=== PATIENT | male | born 1980 | race Caucasian/White ===

== ENCOUNTER 2017-09-15 04:15 | Observation (INO) ==
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
[2017-09-15 05:03] LABS: Bilirubin,Urine Negative (Negative); Blood,Urine Trace (Negative); Clarity,Urine Clear (Clear); Color,Urine Yellow (Yellow); Glucose,Urine (UA) Normal (Normal); Ketones,Urine Negative (Negative); Leukocyte Esterase,Urine Negative (Negative); Nitrite,Urine Negative (Negative); Protein,Urine Trace mg/dL (Neg-Trace); Specific Gravity,Urine 1.021 (1.010-1.025); Urobilinogen,Urine Normal (Normal)
[2017-09-15 05:03] LABS: Basophils % 0.2 %; Eosinophils # 0.1 K/mcL (0.0-0.6); Eosinophils % 0.4 %; Hematocrit 48.4 % (37.5-50.1); Hemoglobin 17.4 g/dL (12.9-16.9); Immature Granulocytes % 0.6 % (0-4); Lymphocytes # 2.8 K/mcL (0.6-4.6); Mean Corpuscular Hemoglobin 30.9 pg (28.0-33.3); Mean Platelet Volume 9.2 fL (9.4-12.4); Monocytes # 0.7 K/mcL (0.0-1.3); Monocytes % 4.9 %; Neutrophils # 9.6 K/mcL (1.6-8.9); Platelet Count 346 K/mcL (140-400); Red Blood Count 5.63 M/mcL (4.19-5.50); Red Cell Distribution Width 12.7 % (11.5-14.5); Segmented Neutrophils % 72.9 %
[2017-09-15 05:05] LABS: Bacteria,Urine None Seen per hpf (None-Few); Hyaline Casts,Urine None Seen per lpf (None-Few); Squamous Epithelial Cell,Urine Moderate per lpf (None-Few)
--- NOTE | 2017-09-15 05:07 | Emergency Department Note ---
Disposition Clinical Impression: Suicidal ideation, Substance abuse, Alcohol abuse Closed head injury Qualifiers: Encounter type: initial encounter Qualified Code(s): S09.90XA - Unspecified injury of head, initial encounter Disposition: Admitted As Inpatient Condition: Fair General Adult HPI - General Chief complaint: ED Psychiatric Symptoms Stated complaint: SI Time Seen by Provider: 09/15/17 04:22 Source: patient, EMS Mode of arrival: EMS Limitations: no limitations - History of Present Illness Pain Scale: 0 - Related Data Home Medications Medication Instructions Recorded Confirmed No Known Home Drugs 09/15/17 09/15/17 Allergies Allergy/AdvReac Type Severity Reaction Status Date / Time ketorolac [From Toradol] Allergy Hives Verified 07/04/16 09:07 Naloxone [From Narcan] AdvReac Palpitation Verified 07/04/16 09:07 s Constitutional: Denies: fever Cardiovascular: Reports: chest pain Respiratory: Denies: cough, dyspnea Gastrointestinal: Denies: abdominal pain, nausea, vomiting Past Medical History - Past Medical History Medical history: Reports: no medical history Psychiatric history: Reports: no psych history - Social History Smoking Status: Current every day smoker Smokeless Tobacco Status: No Alcohol use: Reports: none Drug use: Reports: IV Drug Use, prescription drug abuse, other Physical Exam - General Limitations: no limitations General appearance: alert, in no apparent distress, other (Appears tearful and crying) Course Vital Signs Temperature 98.1 F 09/15/17 04:19 Pulse Rate 99 09/15/17 04:19 Respiratory Rate 18 09/15/17 04:19 Blood Pressure 137/109 09/15/17 04:19 O2 Sat by Pulse Oximetry 97 09/15/17 04:19 Temperature 99.1 F 09/15/17 15:53 Pulse Rate 94 09/15/17 15:53 Respiratory Rate 18 09/15/17 15:53 Blood Pressure 141/79 09/15/17 15:53 O2 Sat by Pulse Oximetry 99 09/15/17 15:53 Oxygen Delivery Oxygen Delivery Room Air Medical Decision Making - Lab Data Result diagrams: 09/15/17 04:22 09/15/17 04:22 Lab Results 09/15/17 09/15/17 09/15/17 Range/Units 03:47 03:47 04:22 WBC 13.2 H (4.3-11.1) K/mcL RBC 5.63 H (4.19-5.50) M/mcL Hgb 17.4 H (12.9-16.9) g/dL Hct 48.4 (37.5-50.1) % MCV 86.0 (83.0-100.0) fL MCH 30.9 (28.0-33.3) pg MCHC 36.0 H (31.6-35.5) g/dL RDW 12.7 (11.5-14.5) % Plt Count 346 (140-400) K/mcL MPV 9.2 L (9.4-12.4) fL Immature Gran % 0.6 (0-4) % Seg Neutrophils % 72.9 % Lymphocytes % 21.0 % Monocytes % 4.9 % Eosinophils % 0.4 % Basophils % 0.2 % Neutrophils # 9.6 H (1.6-8.9) K/mcL Lymphocytes # 2.8 (0.6-4.6) K/mcL Monocytes # 0.7 (0.0-1.3) K/mcL Eosinophils # 0.1 (0.0-0.6) K/mcL Basophils # 0.0 (0.0-0.2) K/mcL Sodium (136-145) mEq/L Potassium (3.5-5.1) mEq/L Chloride (98-107) mEq/L Carbon Dioxide (23-29) mEq/L BUN (6-20) mg/dL Creatinine (0.70-1.30) mg/dL Est GFR ( Amer) (> 60) Est GFR (Non-Af Amer) (> 60) BUN/Creatinine Ratio (6-26) Glucose (70-105) mg/dL Calculated Osmolality (280-300) Calcium (8.6-10.3) mg/dL Urine Color Yellow (Yellow) Urine Clarity Clear (Clear) Urine pH 7.0 (5.0-8.0) pH Units Ur Specific [place] 1.021 (1.010-1.025) Urine Protein Trace (Neg-Trace) mg/dL Urine Glucose (UA) Normal (Normal) mg/dL Urine Ketones Negative (Negative) mg/dL Urine Blood Trace H (Negative) Urine Nitrite Negative (Negative) Urine Bilirubin Negative (Negative) Urine Urobilinogen Normal (Normal) mg/dL Ur Leukocyte Esterase Negative (Negative) Urine Microscopic RBC 5-15 H (0-3) per hpf Urine Microscopic WBC 3-5 H (0-3) per hpf Ur Squamous Epith Cells Moderate H (None-Few) per lpf Urine Bacteria None Seen (None-Few) per hpf Hyaline Casts None Seen (None-Few) per lpf Salicylates (15.0-30.0) mg/dL Urine Opiates Screen Positive H (Zfmxns=642) ng/mL Acetaminophen (10-20) mcg/mL Ur Barbiturates Screen Negative (Iikifu=863) ng/mL Ur Phencyclidine Scrn Negative (Cutoff=25) ng/mL Ur Amphetamines Screen Positive H (Thmpfa=5901) ng/mL U Benzodiazepines Scrn Negative (Mmecpi=592) ng/mL Urine Cocaine Screen Negative (Cutoff= 300) ng/mL U Marijuana (THC) Screen Negative (Cutoff = 50) ng/mL Ethyl Alcohol (Less than 10) mg/dL 09/15/17 09/15/17 09/15/17 Range/Units 04:22 07:17 08:01 WBC (4.3-11.1) K/mcL RBC (4.19-5.50) M/mcL Hgb (12.9-16.9) g/dL Hct (37.5-50.1) % MCV (83.0-100.0) fL MCH (28.0-33.3) pg MCHC (31.6-35.5) g/dL RDW (11.5-14.5) % Plt Count (140-400) K/mcL MPV (9.4-12.4) fL Immature Gran % (0-4) % Seg Neutrophils % % Lymphocytes % % Monocytes % % Eosinophils % % Basophils % % Neutrophils # (1.6-8.9) K/mcL Lymphocytes # (0.6-4.6) K/mcL Monocytes # (0.0-1.3) K/mcL Eosinophils # (0.0-0.6) K/mcL Basophils # (0.0-0.2) K/mcL Sodium 140 (136-145) mEq/L Potassium 3.7 (3.5-5.1) mEq/L Chloride 108 H (98-107) mEq/L Carbon Dioxide 23 (23-29) mEq/L BUN 9 (6-20) mg/dL Creatinine 0.89 (0.70-1.30) mg/dL Est GFR ( Amer) > 60 (> 60) Est GFR (Non-Af Amer) > 60 (> 60) BUN/Creatinine Ratio 10 (6-26) Glucose 114 H (70-105) mg/dL Calculated Osmolality 290 (280-300) Calcium 9.8 (8.6-10.3) mg/dL Urine Color (Yellow) Urine Clarity (Clear) Urine pH (5.0-8.0) pH Units Ur Specific [place] (1.010-1.025) Urine Protein (Neg-Trace) mg/dL Urine Glucose (UA) (Normal) mg/dL Urine Ketones (Negative) mg/dL Urine Blood (Negative) Urine Nitrite (Negative) Urine Bilirubin (Negative) Urine Urobilinogen (Normal) mg/dL Ur Leukocyte Esterase (Negative) Urine Microscopic RBC (0-3) per hpf Urine Microscopic WBC (0-3) per hpf Ur Squamous Epith Cells (None-Few) per lpf Urine Bacteria (None-Few) per hpf Hyaline Casts (None-Few) per lpf Salicylates < 2.5 L (15.0-30.0) mg/dL Urine Opiates Screen (Zvqeje=949) ng/mL Acetaminophen < 10 L (10-20) mcg/mL Ur Barbiturates Screen (Zlvyni=399) ng/mL Ur Phencyclidine Scrn (Cutoff=25) ng/mL Ur Amphetamines Screen (Buyxsd=7235) ng/mL U Benzodiazepines Scrn (Dmnspc=885) ng/mL Urine Cocaine Screen (Cutoff= 300) ng/mL U Marijuana (THC) Screen (Cutoff = 50) ng/mL Ethyl Alcohol 132 H 87 H 71 H (Less than 10) mg/dL Attestation Statement - Attestation Attestation: I examined this patient and my medical decision-making was reviewed with the Resident Physician. I agree with the documented findings, disposition and treatment plan as described except to the extent set forth below. Patient presents to the ED with suicidal ideation. Alcohol intoxication. Fall with facial injury. Patient reports increased stress of his girlfriend committed suicide. Patient is crying and tearful on examination. Plan. Medical clearance and psychiatric evaluation. CT head face. Signed out at shift change Dr. Gomez at [phone].
[2017-09-15 05:22] LABS: Acetaminophen < 10 mcg/mL (10-20); BUN/Creatinine Ratio 10 (6-26); Blood Urea Nitrogen 9 mg/dL (6-20); Calcium 9.8 mg/dL (8.6-10.3); Carbon Dioxide 23 mEq/L (23-29); Chloride 108 mEq/L (98-107); Ethanol 132 mg/dL (Less than 10); Glucose 114 mg/dL (70-105); Osmolality,Calculated 290 (280-300); Potassium 3.7 mEq/L (3.5-5.1); Salicylate < 2.5 mg/dL (15.0-30.0); Sodium 140 mEq/L (136-145); eGFR For African Americans > 60 (> 60); eGFR For Non-African Americans > 60 (> 60)
[2017-09-15 05:24] LABS: Amphetamine Screen,Urine Positive ng/mL (Cutoff=1000); Barbiturate Screen,Urine Negative ng/mL (Cutoff=200); Benzodiazepines Screen,Urine Negative ng/mL (Cutoff=200); Cannabinoid Screen,Urine Negative ng/mL (Cutoff = 50); Cocaine Screen,Urine Negative ng/mL (Cutoff= 300); Opiate Screen,Urine Positive ng/mL (Cutoff=300); Phencyclidine Screen,Urine Negative ng/mL (Cutoff=25)
--- NOTE | 2017-09-15 08:02 | Emergency Department Note ---
Disposition Clinical Impression: Suicidal ideation, Substance abuse, Alcohol abuse Closed head injury Qualifiers: Encounter type: initial encounter Qualified Code(s): S09.90XA - Unspecified injury of head, initial encounter Disposition: Admitted As Inpatient Condition: Fair Referrals: NONE,PCP [Primary Care Provider] - Time of Disposition: 09: General Adult HPI - General Chief complaint: ED Psychiatric Symptoms Stated complaint: SI Time Seen by Provider: 09/15/17 04:22 Source: patient, EMS Mode of arrival: EMS Limitations: no limitations - History of Present Illness Pain Scale: 0 - Related Data Home Medications Medication Instructions Recorded Confirmed No Known Home Drugs 09/15/17 09/15/17 Allergies Allergy/AdvReac Type Severity Reaction Status Date / Time ketorolac [From Toradol] Allergy Hives Verified 07/04/16 09:07 Naloxone [From Narcan] AdvReac Palpitation Verified 07/04/16 09:07 s Constitutional: Denies: fever Cardiovascular: Reports: chest pain Respiratory: Denies: cough, dyspnea Gastrointestinal: Denies: abdominal pain, nausea, vomiting Past Medical History - Past Medical History Medical history: Reports: no medical history Psychiatric history: Reports: no psych history - Social History Smoking Status: Current every day smoker Smokeless Tobacco Status: No Alcohol use: Reports: none Drug use: Reports: IV Drug Use, prescription drug abuse, other Physical Exam - General Limitations: no limitations General appearance: alert, in no apparent distress, other (Appears tearful and crying) Course Vital Signs Temperature 98.1 F 09/15/17 04:19 Pulse Rate 99 09/15/17 04:19 Respiratory Rate 18 09/15/17 04:19 Blood Pressure 137/109 09/15/17 04:19 O2 Sat by Pulse Oximetry 97 09/15/17 04:19 Temperature 98.1 F 09/15/17 04:19 Pulse Rate 76 09/15/17 05:09 Respiratory Rate 18 09/15/17 05:09 Blood Pressure 132/88 09/15/17 05:09 O2 Sat by Pulse Oximetry 98 09/15/17 05:09 Oxygen Delivery Oxygen Delivery Room Air Medical Decision Making - Lab Data Lab results reviewed: Yes I reviewed the patient's lab results. Result diagrams: 09/15/17 04:22 09/15/17 04:22 Lab Results 09/15/17 09/15/17 09/15/17 Range/Units 03:47 03:47 04:22 WBC 13.2 H (4.3-11.1) K/mcL RBC 5.63 H (4.19-5.50) M/mcL Hgb 17.4 H (12.9-16.9) g/dL Hct 48.4 (37.5-50.1) % MCV 86.0 (83.0-100.0) fL MCH 30.9 (28.0-33.3) pg MCHC 36.0 H (31.6-35.5) g/dL RDW 12.7 (11.5-14.5) % Plt Count 346 (140-400) K/mcL MPV 9.2 L (9.4-12.4) fL Immature Gran % 0.6 (0-4) % Seg Neutrophils % 72.9 % Lymphocytes % 21.0 % Monocytes % 4.9 % Eosinophils % 0.4 % Basophils % 0.2 % Neutrophils # 9.6 H (1.6-8.9) K/mcL Lymphocytes # 2.8 (0.6-4.6) K/mcL Monocytes # 0.7 (0.0-1.3) K/mcL Eosinophils # 0.1 (0.0-0.6) K/mcL Basophils # 0.0 (0.0-0.2) K/mcL Sodium (136-145) mEq/L Potassium (3.5-5.1) mEq/L Chloride (98-107) mEq/L Carbon Dioxide (23-29) mEq/L BUN (6-20) mg/dL Creatinine (0.70-1.30) mg/dL Est GFR ( Amer) (> 60) Est GFR (Non-Af Amer) (> 60) BUN/Creatinine Ratio (6-26) Glucose (70-105) mg/dL Calculated Osmolality (280-300) Calcium (8.6-10.3) mg/dL Urine Color Yellow (Yellow) Urine Clarity Clear (Clear) Urine pH 7.0 (5.0-8.0) pH Units Ur Specific [place] 1.021 (1.010-1.025) Urine Protein Trace (Neg-Trace) mg/dL Urine Glucose (UA) Normal (Normal) mg/dL Urine Ketones Negative (Negative) mg/dL Urine Blood Trace H (Negative) Urine Nitrite Negative (Negative) Urine Bilirubin Negative (Negative) Urine Urobilinogen Normal (Normal) mg/dL Ur Leukocyte Esterase Negative (Negative) Urine Microscopic RBC 5-15 H (0-3) per hpf Urine Microscopic WBC 3-5 H (0-3) per hpf Ur Squamous Epith Cells Moderate H (None-Few) per lpf Urine Bacteria None Seen (None-Few) per hpf Hyaline Casts None Seen (None-Few) per lpf Salicylates (15.0-30.0) mg/dL Urine Opiates Screen Positive H (Shbqed=645) ng/mL Acetaminophen (10-20) mcg/mL Ur Barbiturates Screen Negative (Wpsyat=335) ng/mL Ur Phencyclidine Scrn Negative (Cutoff=25) ng/mL Ur Amphetamines Screen Positive H (Zqtrew=7183) ng/mL U Benzodiazepines Scrn Negative (Woakkf=340) ng/mL Urine Cocaine Screen Negative (Cutoff= 300) ng/mL U Marijuana (THC) Screen Negative (Cutoff = 50) ng/mL Ethyl Alcohol (Less than 10) mg/dL 09/15/17 09/15/17 09/15/17 Range/Units 04:22 07:17 08:01 WBC (4.3-11.1) K/mcL RBC (4.19-5.50) M/mcL Hgb (12.9-16.9) g/dL Hct (37.5-50.1) % MCV (83.0-100.0) fL MCH (28.0-33.3) pg MCHC (31.6-35.5) g/dL RDW (11.5-14.5) % Plt Count (140-400) K/mcL MPV (9.4-12.4) fL Immature Gran % (0-4) % Seg Neutrophils % % Lymphocytes % % Monocytes % % Eosinophils % % Basophils % % Neutrophils # (1.6-8.9) K/mcL Lymphocytes # (0.6-4.6) K/mcL Monocytes # (0.0-1.3) K/mcL Eosinophils # (0.0-0.6) K/mcL Basophils # (0.0-0.2) K/mcL Sodium 140 (136-145) mEq/L Potassium 3.7 (3.5-5.1) mEq/L Chloride 108 H (98-107) mEq/L Carbon Dioxide 23 (23-29) mEq/L BUN 9 (6-20) mg/dL Creatinine 0.89 (0.70-1.30) mg/dL Est GFR ( Amer) > 60 (> 60) Est GFR (Non-Af Amer) > 60 (> 60) BUN/Creatinine Ratio 10 (6-26) Glucose 114 H (70-105) mg/dL Calculated Osmolality 290 (280-300) Calcium 9.8 (8.6-10.3) mg/dL Urine Color (Yellow) Urine Clarity (Clear) Urine pH (5.0-8.0) pH Units Ur Specific [place] (1.010-1.025) Urine Protein (Neg-Trace) mg/dL Urine Glucose (UA) (Normal) mg/dL Urine Ketones (Negative) mg/dL Urine Blood (Negative) Urine Nitrite (Negative) Urine Bilirubin (Negative) Urine Urobilinogen (Normal) mg/dL Ur Leukocyte Esterase (Negative) Urine Microscopic RBC (0-3) per hpf Urine Microscopic WBC (0-3) per hpf Ur Squamous Epith Cells (None-Few) per lpf Urine Bacteria (None-Few) per hpf Hyaline Casts (None-Few) per lpf Salicylates < 2.5 L (15.0-30.0) mg/dL Urine Opiates Screen (Aeyyil=096) ng/mL Acetaminophen < 10 L (10-20) mcg/mL Ur Barbiturates Screen (Ewzwvt=873) ng/mL Ur Phencyclidine Scrn (Cutoff=25) ng/mL Ur Amphetamines Screen (Zhdeuj=3912) ng/mL U Benzodiazepines Scrn (Bsgaxg=230) ng/mL Urine Cocaine Screen (Cutoff= 300) ng/mL U Marijuana (THC) Screen (Cutoff = 50) ng/mL Ethyl Alcohol 132 H 87 H 71 H (Less than 10) mg/dL Attestation Statement - Attestation Attestation: Care assumed from Dr. Rodriguez at 07:00 pending repeat ETOH level and behavioral consultation. Patient sleeping at the time of my exam. 08:00: repeat ETOH remains elevated. repeat study ordered 08:29: Blood-alcohol now less than 80 mg/dL. 1A consulted 09:15: 1A I staffed this case with the attending psychiatrist who conveyed concern for alcohol withdrawal. It was recommended to repeat the alcohol level again or to admit the patient to the medicine service for observation and detox with their consultation to follow if the patient does not go through acute alcohol withdrawal
[2017-09-15] MEDS ORDERED: Thiamine (B-1) 100 MG, Folic Acid 1 MG, MVI, adult with vitamin K 10 ML in 0.9 % Sodi... IVPB ONE (09:30)
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
[2017-09-15] MEDS ORDERED: *HR* Promethazine 25 MG/ML VIAL IVP PRN (09:41)
[2017-09-15] MEDS ORDERED: *HR* LORazepam 2 MG/ML VIAL IVP PRN (09:41)
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
[2017-09-15] MEDS ORDERED: Haloperidol Lactate 5 MG/ML VIAL IVP ONE (16:55)
[2017-09-15] MEDS ORDERED: *HR* LORazepam 2 MG/ML VIAL IVP STA (16:57)
[2017-09-15] MEDS: 0.9 % Sodium Chloride 1,000 ML IVC SCH (17:15)
[2017-09-16 08:18] VITALS: BP 113/75
[2017-09-16] MEDS ORDERED: ALPRAZolam 1 MG TABLET PO ONE (08:33)
[2017-09-16] MEDS ORDERED: Thiamine (B-1) 100 MG TABLET PO SCH (09:00)
[2017-09-16] MEDS ORDERED: Folic Acid 1 MG TABLET PO SCH (09:00)
[2017-09-16] MEDS: 0.9 % Sodium Chloride 1,000 ML IVC SCH (09:09)
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
--- NOTE | 2017-09-19 00:36 | Electrocardiograph Report ---
[address] [address] Test Date: 2017-09-15 Pat Name: Jordi Roy Department: 102 Room: [facility] Gender: M Chief Specialist Leed: Carmen : 1980 Requested By: Glynn Khan Order Number: [id number] Reading MD: Ladi Milner Measurements Intervals [place] Rate: 92 P: 32 AK: 137 QRS: 23 QRSD: 83 T: 30 QT: 324 QTc: 374 Interpretive Statements SINUS RHYTHM Electronically Signed On 09-19-2017 0:35:16 EDT by Ladi Milner
== END 2017-09-16 13:25 ==
LOC: 3BNU 04:15 → EMEROO 04:15 → 3BNU 11:55
PROVIDERS: ADMIT Internal Medicine; ATTEND Registered Nurse

== ENCOUNTER 2017-09-16 13:02 | Inpatient (IN) ==
[2017-09-16] MEDS ORDERED: *HR* LORazepam 1 MG TABLET PO PRN (14:03)
[2017-09-16] MEDS ORDERED: Haloperidol Lactate 5 MG/ML VIAL IM PRN (14:03)
[2017-09-16] MEDS ORDERED: *HR* LORazepam 2 MG/ML VIAL IM PRN (14:03)
[2017-09-16] MEDS ORDERED: MOM Conc 10 ML UD.LIQ PO PRN (14:03)
[2017-09-16] MEDS ORDERED: Mag Hydrox/Al Hydrox/Simeth 30 ML UDC PO PRN (14:03)
[2017-09-16] MEDS ORDERED: Nicotine 2 MG GUM BC PRN (14:18)
[2017-09-16] MEDS ORDERED: clonazePAM 1 MG TABLET PO STA (15:12)
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
[2017-09-16] MEDS: Nicotine 21 MG PATCH.TD24 TD SCH (18:24)
[2017-09-16] MEDS: clonazePAM 1 MG TABLET PO SCH (21:17)
[2017-09-16] MEDS: traZODone 50 MG TABLET PO PRN (21:17)
[2017-09-17] MEDS: Nicotine 21 MG PATCH.TD24 TD SCH (08:42)
[2017-09-17] MEDS: clonazePAM 1 MG TABLET PO SCH ×2 (08:42→20:59)
[2017-09-17] MEDS: Ibuprofen 400 MG TABLET PO PRN (09:54)
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
[2017-09-17] MEDS: hydrOXYzine pamoate 25 MG CAPSULE PO PRN (10:26)
[2017-09-17] MEDS: traZODone 50 MG TABLET PO PRN (20:59)
[2017-09-18] MEDS: Nicotine 21 MG PATCH.TD24 TD SCH ×2 (08:35→17:02)
[2017-09-18] MEDS: clonazePAM 1 MG TABLET PO SCH ×3 (08:35→21:02)
[2017-09-18] MEDS: Ibuprofen 400 MG TABLET PO PRN (11:24)
[2017-09-18] MEDS: hydrOXYzine pamoate 25 MG CAPSULE PO PRN ×2 (14:27→21:02)
--- NOTE | 2017-09-18 16:14 | Psychiatry Progress Note ---
Date of Encounter: 09/18/17 Time of Encounter: 15:15 Subjective Interval history: Patient seen for follow-up. Case discussed with treatment team. Staff report patient is self isolated med compliant and denies suicidal ideation. Does not attend activities. Focus on discharge. Per social security assessor family is concerned. Review of Systems Psychiatric: Reports: abnormal sleep pattern, suicidal ideation, difficulty concentrating, hopelessness, irritability, mood swings Results - Vital Signs Vital Signs: Temp Pulse Resp BP 97.9 F 101 16 119/85 09/18/17 09:00 09/18/17 09:00 09/18/17 09:00 09/18/17 09:00 Assessment and Plan (1) Major depressive disorder, single episode, severe without psychotic features Current visit: No Status: Acute Plan: Continue hospitalization, Close observation, Suicide Precautions per unit protocol, Encourage participation in unit milieu, Group Therapy, Monitor sleep, Monitor appetite Risks, benefits, side effects, alternatives discussed w/pt: Yes Patient agreeable to treatment: Yes Consult Discharge Plan - Plan Referrals: Alecia Sarkar [Outside] (The above appointment is with . When you come to your first appointment, you will be completing paperwork, meeting with a counselor, and developing a treatment plan. You will receive follow- up appointments for on-going services, which could include community support, mental health and substance abuse counseling, groups/partial hospitalization programming and medication assisted treatment. Please note, you will receive a new patient packet in the mail. Please complete that to the best of your ability and bring it with you to your first appointment. You will also need to bring the following to your first appointment as well: 1) proof of household income (two consecutive pay stubs, social security award letter, bank statement , statement letter from [facility], child support statement, IRS 1040 or W2 form, or a statement from the person who financially supports you stating they help provide for your basic needs), 2) proof of residency (drivers license, a piece of mail showing your address, a statement from person you live with verifying you live at their address), 3) your social security card, 4) photo ID, 5) your insurance card (if you have commercial insurance you must call to obtain a prior authorization number before you arrive to your first appointment) and 6) if you do not have insurance but have applied for Medicaid, please bring verification you have applied. The above appointment(s) reflects first availability. You may contact the office regularly to check for cancellations that may allow you to be seen sooner.) Maya Morillo, [Partnered Physician] - 09/21/17 1:00 pm (The above appointment is with Dr. Morillo's nurse practitioner, Mandi Squires, for primary health care and medication management services. ) Psychiatry Exam - Constitutional Vitals: Temp Pulse Resp BP 97.9 F 101 16 119/85 09/18/17 09:00 09/18/17 09:00 09/18/17 09:00 09/18/17 09:00 General appearance: age & developmentally appropriate, well-groomed, well- nourished - Musculoskeletal Gait: normal Station: relaxed Strength & Tone: normal for patient - Psychiatric Patient Orientation: Yes Person, Yes Time, Yes Place Level of alertness: Alert Behavior: calm, cooperative, anxious, hostile, guarded Psychomotor activity: Normal Eye Contact: Minimal Contact Mood Description: Angry, Irritable Affect description: congruent with mood, constricted, dysphoric Speech Volume: Normal Speech pattern: normal rate, normal rhythm, normal tone, fluent, spontaneous Language & Vocabulary: consistent with education Thought Process: Linear, Goal Oriented Thought Content: No Suicidal ideation, No Homicidal ideation, No Overt delusions Perceptual Disturbances: No Auditory hallucinations, No Visual hallucinations Attention Span Ability: Capable of Focused Attention Memory Description: Grossly Intact Patient Reliability: Reliable Historian Fund of knowledge: Yes abstraction ability, Yes aware of current events Intelligence Estimate: Average Judgment: Limited Insight: Partial
[2017-09-18] MEDS ORDERED: clonazePAM 1 MG TABLET PO SCH (21:00)
[2017-09-18] MEDS: traZODone 50 MG TABLET PO PRN (21:03)
[2017-09-19 08:48] VITALS: BP 119/85
[2017-09-19] MEDS: Nicotine 21 MG PATCH.TD24 TD SCH (09:13)
[2017-09-19] MEDS: clonazePAM 1 MG TABLET PO SCH ×2 (09:13→15:04)
--- NOTE | 2017-09-19 12:18 | Discharge Summary ---
Date of Encounter: 09/19/17 Time of Encounter: 12:14 Diagnosis - Discharge Diagnosis (1) Major depressive disorder, single episode, severe without psychotic features Status: Acute (2) Acute stress reaction Status: Acute (3) Bereavement Status: Acute Medications - Discharge Medications No Known Home Drugs 09/15/17 [History] 3 Allergy/AdvReac Type Severity Reaction Status Date / Time ketorolac [From Toradol] Allergy Hives Verified 07/04/16 09:07 Naloxone [From Narcan] AdvReac Palpitation Verified 07/04/16 09:07 s Provider Date of admission: 09/16/17 13:02 Primary care physician: PCP NONE Discharging clinician: Brady Luna Psychiatry Exam - Constitutional Vitals: Temp Pulse Resp BP 97.3 F L 81 16 119/85 09/19/17 08:47 09/19/17 08:47 09/19/17 08:47 09/19/17 08:47 General appearance: age & developmentally appropriate, well-groomed, well- nourished - Musculoskeletal Gait: normal Station: relaxed Strength & Tone: normal for patient - Psychiatric Patient Orientation: Yes Person, Yes Time, Yes Place Level of alertness: Alert Behavior: calm, cooperative, guarded, withdrawn Psychomotor activity: Normal Eye Contact: Maintains Eye Contact Mood Description: Euthymic/stable, Depressed Affect description: congruent with mood, blunted Speech Volume: Normal Speech pattern: normal rate, normal rhythm, normal tone, fluent, spontaneous Language & Vocabulary: consistent with education Thought Process: Linear, Goal Oriented Thought Content: No Suicidal ideation, No Homicidal ideation, No Overt delusions Perceptual Disturbances: No Auditory hallucinations, No Visual hallucinations Attention Span Ability: Capable of Focused Attention Memory Description: Grossly Intact Patient Reliability: Reliable Historian Fund of knowledge: Yes abstraction ability, Yes aware of current events Intelligence Estimate: Average Judgment: Limited Insight: Partial Hospital Course Hospital course: Mr. Roy is a 37 year old male admitted for depression and suicidal ideation after having a traumatic event. For details of the admission please see H&P On the unit patient was treated was Zoloft and Klonopin he was encouraged to participate in groups and activity he was self isolating for the most part but he was cooperative and medication compliant. Patient was anxious to be discharged and social work was able to set him up for an appointment [facility] and also shared information was a family very supportive and patient felt comfortable about's discharge and follow up as outpatient. On discharge patient was medically stable denies any side effects of medication he was future oriented and hopeful denied any suicidal ideation and was discharged in stable condition. Details of discharge plan as per social work notes. - Time Spent with Patient Total time spent providing and/or coordinating discharge services: Less than 30 minutes Assessment and Plan - Patient/Caregiver Discharge Instructions Activity: resume usual activities as tolerated Diet: regular diet - Follow up Plan Follow up with: Alecia Sarkar [Outside] - 09/19/17 3:30 pm (The above appointment is with Nata Epps. When you come to your first appointment, you will be completing paperwork, meeting with a counselor, and developing a treatment plan. You will receive follow- up appointments for on-going services , which could include community support, mental health and substance abuse counseling, groups/partial hospitalization programming and medication assisted treatment. Please note, you will receive a new patient packet in the mail. Please complete that to the best of your ability and bring it with you to your first appointment. You will also need to bring the following to your first appointment as well: 1) proof of household income (two consecutive pay stubs, social security award letter, bank statement, statement letter from [facility], child support statement, IRS 1040 or W2 form, or a statement from the person who financially supports you stating they help provide for your basic needs), 2 ) proof of residency (drivers license, a piece of mail showing your address, a statement from person you live with verifying you live at their address), 3) your social security card, 4) photo ID, 5) your insurance card (if you have commercial insurance you must call to obtain a prior authorization number before you arrive to your first appointment) and 6) if you do not have insurance but have applied for Medicaid, please bring verification you have applied. The above appointment(s) reflects first availability. You may contact the office regularly to check for cancellations that may allow you to be seen sooner.) Maya Morillo DO [Partnered Physician] - 09/21/17 1:00 pm (The above appointment is with Dr. Morillo's nurse practitioner, Mandi Squires, for primary health care and medication management services. ) Functional capacity at discharge: independent ambulation Overall status at discharge: Stable Disposition: Home, Self-Care Quality - Multiple Antipsychotics Patient discharged on 2 or more antipsychotic medications: No Procedures - Procedures Procedures: Medication Management, Crisis Stabilization, Supportive Therapy, Group Therapy, Psychoeducational Therapy
== END 2017-09-19 15:35 | disposition home or self-care (01) | DRG 751 ==
LOC: 1ANU 13:02 → SUATTDRO 13:02
PROVIDERS: ADMIT Psychiatry & Neurology Forensic Psychiatry; ATTEND Psychiatry & Neurology Psychiatry

== ENCOUNTER 2017-10-29 16:33 | Observation (INO) ==
[~2017-10-29 16:33] MED LIST: *HR* LORazepam 2 MG/ML VIAL IVP ONE
[2017-10-29] MEDS ORDERED: 0.9 % Sodium Chloride 1,000 ML IVC ONE (16:45)
[2017-10-29] MEDS ORDERED: 0.9 % Sodium Chloride 1,000 ML ONE (16:47)
[2017-10-29] MEDS ORDERED: *HR* LORazepam 2 MG/ML VIAL IVP ONE (16:47)
[2017-10-29 16:55] LABS: Hematocrit 48.2 % (37.5-50.1); Hemoglobin 17.2 g/dL (12.9-16.9); Immature Granulocytes % 0.5 % (0-4); Mean Corpuscular HGB Conc 35.7 g/dL (31.6-35.5); Mean Corpuscular Hemoglobin 31.6 pg (28.0-33.3); Mean Corpuscular Volume 88.6 fL (83.0-100.0); Mean Platelet Volume 9.3 fL (9.4-12.4); Monocytes % 7.6 %; Platelet Count 351 K/mcL (140-400); Red Blood Count 5.44 M/mcL (4.19-5.50); Red Cell Distribution Width 12.5 % (11.5-14.5); Segmented Neutrophils % 73.1 %
[2017-10-29 16:56] LABS: Basophils % 0.2 %; Eosinophils # 0.1 K/mcL (0.0-0.6); Eosinophils % 0.6 %; Lymphocytes # 3.9 K/mcL (0.6-4.6); Monocytes # 1.6 K/mcL (0.0-1.3); Neutrophils # 15.9 K/mcL (1.6-8.9)
--- NOTE | 2017-10-29 17:01 | Emergency Department Note ---
Disposition Clinical Impression: Seizure-like activity Disposition: Admitted As Inpatient General Adult [facility] General Chief complaint: ED Seizure Stated complaint: seizure Time Seen by Provider: 10/29/17 16:38 Source: patient, family - History of Present Illness Pain Scale: 0 - Related Data Home Medications Medication Instructions Recorded Confirmed No Known Home Drugs 09/15/17 09/16/17 Allergies Allergy/AdvReac Type Severity Reaction Status Date / Time ketorolac [From Toradol] Allergy Hives Verified 07/04/16 09:07 Naloxone [From Narcan] AdvReac Palpitation Verified 07/04/16 09:07 s Past Medical History - Past Medical History Medical history: Reports: no medical history Surgical history: Reports: no surgical history Psychiatric history: Reports: anxiety, other - Social History Smoking Status: Current every day smoker Smokeless Tobacco Status: No Alcohol use: Reports: none Drug use: Reports: opiates, IV Drug Use, prescription drug abuse, other Physical Exam - General General appearance: alert, anxious, in distress Course Vital Signs Temperature 98.2 F 10/29/17 16:35 Pulse Rate 122 10/29/17 16:35 Respiratory Rate 22 10/29/17 16:35 Blood Pressure 150/110 10/29/17 16:35 O2 Sat by Pulse Oximetry 97 10/29/17 16:35 Temperature 98.2 F 10/29/17 16:35 Pulse Rate 99 10/29/17 16:50 Respiratory Rate 19 10/29/17 16:50 Blood Pressure 138/96 10/29/17 16:50 O2 Sat by Pulse Oximetry 99 10/29/17 16:52 Oxygen Delivery Oxygen Delivery Nasal Cannula Medical Decision Making - Lab Data Result diagrams: 10/29/17 16:45 Lab Results 10/29/17 Range/Units 16:45 WBC 21.7 H (4.3-11.1) K/mcL RBC 5.44 (4.19-5.50) M/mcL Hgb 17.2 H (12.9-16.9) g/dL Hct 48.2 (37.5-50.1) % MCV 88.6 (83.0-100.0) fL MCH 31.6 (28.0-33.3) pg MCHC 35.7 H (31.6-35.5) g/dL RDW 12.5 (11.5-14.5) % Plt Count 351 (140-400) K/mcL MPV 9.3 L (9.4-12.4) fL Immature Gran % 0.5 (0-4) % Seg Neutrophils % 73.1 % Lymphocytes % 18.0 % Monocytes % 7.6 % Eosinophils % 0.6 % Basophils % 0.2 % Neutrophils # 15.9 H (1.6-8.9) K/mcL Lymphocytes # 3.9 (0.6-4.6) K/mcL Monocytes # 1.6 H (0.0-1.3) K/mcL Eosinophils # 0.1 (0.0-0.6) K/mcL Basophils # 0.0 (0.0-0.2) K/mcL Attestation Statement - Attestation Attestation: I examined this patient and my medical decision-making was reviewed with the Resident Physician. I agree with the documented findings, disposition and treatment plan as described except to the extent set forth below. 37 year ol dmale prsentse to the ED with complaints of seizure lke acivitiy witness as tonic clonic movments in the security department. He states that he was sprayng organophosphates today witohut a mask and that he is also on a number of anti-depression medicatiosn such as SSRIs. PAtinet is tachcyaridaci and diahpretics and has tremor like activity at bedside. Patinet like it hyperthermic as well. We have give narcan without any relief. Ativan has been delviered as well and we will do IVF for supportive managment. Possible toxidrome presents anticholinerigic vs sympathomimetic vs serotonin syndrome, or organophosphtate exposure. WE will admit t medicine afer stabiliziation
[2017-10-29 17:15] LABS: Acetaminophen < 10 mcg/mL (10-20); Alanine Aminotransferase 17 Units/L (7-52); Albumin 4.8 g/dL (3.5-5.7); Albumin/Globulin Ratio 1.2 (1.1-2.2); Alkaline Phosphatase 61 Units/L (34-104); Aspartate Amino Transferase 15 Units/L (13-39); BUN/Creatinine Ratio 11 (6-26); Bilirubin,Direct 0.2 mg/dL (0.0-0.2); Bilirubin,Indirect 0.5 mg/dL (0.0-1.2); Bilirubin,Total 0.7 mg/dL (0.3-1.0); Blood Urea Nitrogen 12 mg/dL (6-20); Calcium 10.6 mg/dL (8.6-10.3); Carbon Dioxide 23 mEq/L (23-29); Chloride 106 mEq/L (98-107); Creatine Kinase 157 Units/L (30-223); Ethanol < 10 mg/dL (Less than 10); Globulin 3.9 g/dL (2.4-3.5); Glucose 91 mg/dL (70-105); Osmolality,Calculated 293 (280-300); Potassium 4.1 mEq/L (3.5-5.1); Salicylate < 2.5 mg/dL (15.0-30.0); Sodium 142 mEq/L (136-145); Total Protein 8.7 g/dL (6.4-8.9); eGFR For African Americans > 60 (> 60); eGFR For Non-African Americans > 60 (> 60)
[2017-10-29] MEDS ORDERED: Isovue-370 500 ML INFUS..BTL IV ONE (17:28)
--- NOTE | 2017-10-29 17:41 | Emergency Department Note ---
Disposition Clinical Impression: Seizure-like activity, Drug reaction, Leukocytosis Disposition: Admitted As Inpatient Condition: Fair Time of Disposition: 18:17 Seizure HPI - General Chief Complaint: ED Seizure Stated Complaint: seizure Time Seen by Provider: 10/29/17 16:38 Source: patient, family Mode of arrival: private vehicle Nursing Notes Reviewed: Yes Vital Signs Reviewed: Yes - History of Present Illness HPI Narrative: Patient arrives to the ED via private vehicle for seizure-like activity. We were called out to the parking lot, stating that there is a patient's seizing coming in. Once outside patient was having generalized spasms and tonic-clonic type movements, but was awake and alert during this and responsive. States that he feels like lightning was shooting all throughout his body. His girlfriend states that she just broke up with him today and she thinks that may have set up something off. He does not a history of drug use, but is on Suboxone and she is unsure if he used today or not, but has been known to use methamphetamine in the past. Patient denies any drug use today. States that he is hurting all over. No history of seizure disorder and states she has not lost consciousness. Did not have any trauma or head injury. Does report that he was outside today using some chemicals and pesticides and was not wearing a mask. He also reports that he is on Zoloft and recently had his dose doubled about a week ago. Denies any chest pain currently. Denies any abdominal pain. States that he does have diffuse myalgias when these episodes hit. - Related Data Home Medications Medication Instructions Recorded Confirmed Buprenorphine HCl/Naloxone HCl 1.5 tab PO DAILY 10/29/17 10/29/17 [Buprenorphin-Naloxon 8-2 mg Sl] HydrOXYzine Pamoate [Vistaril] 100 mg PO BID 10/29/17 10/29/17 Sertraline [Zoloft] 100 mg PO DAILY 10/29/17 10/29/17 clonazePAM [Klonopin] 1 mg PO BID 10/29/17 10/29/17 Allergies Allergy/AdvReac Type Severity Reaction Status Date / Time ketorolac [From Toradol] Allergy Hives Verified 10/29/17 18:13 Naloxone [From Narcan] AdvReac Palpitation Verified 10/29/17 18:13 s Review of Systems: As reviewed in the HPI. All other systems reviewed are negative or normal. Past Medical History - Past Medical History Attestation: Yes The following information was validated with the patient. Source: patient Medical history: Reports: no medical history Surgical history: Reports: no surgical history Psychiatric history: Reports: anxiety, other - Social History Smoking Status: Current every day smoker Smokeless Tobacco Status: No Alcohol use: Reports: none Drug use: Reports: opiates, IV Drug Use, prescription drug abuse, other Physical Exam CONSTITUTIONAL: In distress SKIN: [Diaphoretic] EYES: [extraocular movements are grossly intact, clear conjunctiva, pupils equal and reactive] HENT: [Normocephalic, atraumatic, moist mucus membranes] NECK: [no obvious swelling, normal range of motion] PULMONARY: [normal chest rise and fall, patient is gasping at times and is also tachypnic But is maintaining his airway and seems to be in pain CARDIOVASCULAR: [tachycardic, distal extremities are warm and well perfused] GASTROINSTESTINAL: [nondistended, non-tender] GENITOURINARY: [deferred] NEUROLOGIC: [Normal speech, moving all extremities, GCS is 15,] MUSCULOSKELETAL: [no gross deformities, atraumatic] PSYCHIATRIC: [Anxious, irritable] - General General appearance: alert, anxious, in distress Course Course Narrative: Patient presenting with seizure-like activity but is maintaining consciousness. He has had some exposure to organophosphate's, but is actually tachycardic and not bradycardic. He does not have myosis or mydriasis. We gave him intranasal Narcan, which had no effect. He does report changing and doubling his dose of his SSRI last week and this could be related to serotonin syndrome. This would fit with his agitation and diaphoresis, and tremors. He does not have any obvious clonus, but his extremities are difficult to move and more rigid than normal. We will treat with benzodiazepines and IV fluids. His mental status is intact side do not think he needs a head CT. We will check labs including a CK and admit - Reevaluation(s) Reevaluation #1: labs look ok, does have leukocytosis. admitted to Dr. Matute who requests CT face to r/o dental abscess but patient's dentition does seem to be c/w meth use. patient has been calm after ativan administration and muscle tone has improved. Vital Signs Temperature 98.2 F 10/29/17 16:35 Pulse Rate 122 10/29/17 16:35 Respiratory Rate 22 10/29/17 16:35 Blood Pressure 150/110 10/29/17 16:35 O2 Sat by Pulse Oximetry 97 10/29/17 16:35 Temperature 98.2 F 10/29/17 16:35 Pulse Rate 99 10/29/17 16:50 Respiratory Rate 19 10/29/17 16:50 Blood Pressure 138/96 10/29/17 16:50 O2 Sat by Pulse Oximetry 99 10/29/17 16:52 Oxygen Delivery Oxygen Delivery Nasal Cannula Seizure - Medical Records Medical records reviewed: Yes I reviewed the patient's medical records. - Lab Data Lab results reviewed: Yes I reviewed the patient's lab results. Result diagrams: 10/29/17 16:45 10/29/17 16:45 Lab Results 10/29/17 10/29/17 10/29/17 Range/Units 16:45 16:45 17:07 WBC 21.7 H (4.3-11.1) K/mcL RBC 5.44 (4.19-5.50) M/mcL Hgb 17.2 H (12.9-16.9) g/dL Hct 48.2 (37.5-50.1) % MCV 88.6 (83.0-100.0) fL MCH 31.6 (28.0-33.3) pg MCHC 35.7 H (31.6-35.5) g/dL RDW 12.5 (11.5-14.5) % Plt Count 351 (140-400) K/mcL MPV 9.3 L (9.4-12.4) fL Immature Gran % 0.5 (0-4) % Seg Neutrophils % 73.1 % Lymphocytes % 18.0 % Monocytes % 7.6 % Eosinophils % 0.6 % Basophils % 0.2 % Neutrophils # 15.9 H (1.6-8.9) K/mcL Lymphocytes # 3.9 (0.6-4.6) K/mcL Monocytes # 1.6 H (0.0-1.3) K/mcL Eosinophils # 0.1 (0.0-0.6) K/mcL Basophils # 0.0 (0.0-0.2) K/mcL Sodium 142 (136-145) mEq/L Potassium 4.1 (3.5-5.1) mEq/L Chloride 106 (98-107) mEq/L Carbon Dioxide 23 (23-29) mEq/L BUN 12 (6-20) mg/dL Creatinine 1.13 (0.70-1.30) mg/dL Est GFR ( Amer) > 60 (> 60) Est GFR (Non-Af Amer) > 60 (> 60) BUN/Creatinine Ratio 11 (6-26) Glucose 91 (70-105) mg/dL Calculated Osmolality 293 (280-300) Lactic Acid 1.6 (0.5-2.2) mmol/L Calcium 10.6 H (8.6-10.3) mg/dL Total Bilirubin 0.7 (0.3-1.0) mg/dL Direct Bilirubin 0.2 (0.0-0.2) mg/dL Indirect Bilirubin 0.5 (0.0-1.2) mg/dL AST 15 (13-39) Units/L ALT 17 (7-52) Units/L Alkaline Phosphatase 61 (34-104) Units/L Creatine Kinase 157 (30-223) Units/L Serum Total Protein 8.7 (6.4-8.9) g/dL Albumin 4.8 (3.5-5.7) g/dL Globulin 3.9 H (2.4-3.5) g/dL Albumin/Globulin Ratio 1.2 (1.1-2.2) Salicylates < 2.5 L (15.0-30.0) mg/dL Acetaminophen < 10 L (10-20) mcg/mL Ethyl Alcohol < 10 (Less than 10) mg/dL - Radiology Data Radiology results reviewed: Yes I reviewed the patient's radiology results. - EKG Data EKG attestation: Yes I reviewed and interpreted this EKG. EKG results narrative: Sinus tach, rate 103, ESTHER 136, QRS 84, QTC 395, normal axis, no acute ischemic changes
[2017-10-29] MEDS ORDERED: Naloxone 0.4 MG/ML INJ IVP PRN (18:23)
[2017-10-29] MEDS ORDERED: Clindamycin 600 MG/50 ML 600 MG/50 ML IV.SOLN IVPB ONE (18:35)
--- NOTE | 2017-10-29 18:57 | Internal Med History&Physical ---
Date of Encounter: 10/29/17 Time of Encounter: 18:52 Internal Medicine - H&P: HPI Admitted From: Home Plans for Post Hospital Care: Home History of present illness: Mr. Roy is a 37 year old male who has history of drug abuse and alcoholism.The patient indicated that he had some back pain today and then drove to see his mother. As he was driving he began to have jerky movements that he describes as electricity going through his body. He is alert and oriented x 3, but drowsy from ativan 3 mg given earlier in the ED. ED stated patient is possibly going through serotonin syndrome. The patient indicated that he did a myriad of drugs , including drinking alcohol, two days ago but was doing fine today until he began to have jerking. His mother stated that at 12 noon today he had a breakdown due to remembering his girlfriend recently committing suicide. Apparently the patient was hospitalized on the psych unit back in August when she . He also attempted suicide the same day. His mother indicated that he had been clean for a while until August 14. The patient indicated that he does Ice, meth, and alcohol. He stated that he "beat heroin" a while ago. Patient neuro check is negative despite the jerking. He stated earlier today he was spraying his neighbors yard and got under their trailer and sprayed ant killer. Mother expressed concerns about the patient having dental pain. A ct of the face showed some dental caries, ?small periapical abscess in the maxilla, alejandra- apical lucencies in mandible, facial swelling in chin consistent with cellulitis. The patient was started on clindamycin in the ED. Past Med Surg Social Fam HX - Past Medical History Medical history: no medical history Psychiatric history: anxiety, other - Past Surgical History Surgical History: no surgical history - Social History Smoking Status: Current every day smoker Smokeless Tobacco Status: No Alcohol use: none Drug use: opiates, IV Drug Use, prescription drug abuse, other - Family History Mother Living Status: Still Living Internal Medicine - H&P: Meds Buprenorphine HCl/Naloxone HCl [Buprenorphin-Naloxon 8-2 mg Sl] 1.5 tab PO DAILY 10/29/17 [History] HydrOXYzine Pamoate [Vistaril] 100 mg PO BID 10/29/17 [History] Sertraline [Zoloft] 100 mg PO DAILY 10/29/17 [History] clonazePAM [Klonopin] 1 mg PO BID 10/29/17 [History] 3 Allergy/AdvReac Type Severity Reaction Status Date / Time ketorolac [From Toradol] Allergy Hives Verified 10/29/17 18:13 Naloxone [From Narcan] AdvReac Palpitation Verified 10/29/17 18:13 s All Systems PM: A 10-system review of systems was performed and is negative for pertinent findings except as documented above in the HPI. - Constitutional Vitals: Temp Pulse Resp BP Pulse Ox 98.2 F 84 12 109/77 98 10/29/17 16:35 10/29/17 18:36 10/29/17 18:41 10/29/17 18:41 10/29/17 18:36 General appearance: Present: A&O X 3 - Head Head exam: Present: atraumatic, normocephalic - Eye Eye exam: Present: PERRL, conjuntiva pink, sclera anicteric Pupils: Present: PERRL - ENT Additional comments: Numerous dental caries and mouth tenderness - Neck Neck exam general surgery: Present: supple, trachea midline. Absent: lymphadenopathy - Respiratory Respiratory exam: Present: CTAB. Absent: accessory muscle use, rales, rhonchi, wheezes - Cardiovascular Cardiovascular exam: Present: RRR, +S1, +S2. Absent: diastolic murmur, gallop, rubs, systolic murmur - GI/Abdominal GI/Abdominal exam: Present: normal bowel sounds, soft, no peritoneal signs. Absent: distended, tenderness - Extremities Exam Extremities exam: Present: warm, radial pulses palpable and symmetrical. Absent : calf tenderness, cyanotic, pedal edema - Neurological Exam Neurological exam: Present: alert, CN II-XII intact (Occassional jerky movements ), oriented X3, no focal deficits (Difficult to assess due to occasional jerking movements), strengths equal and symetr throughout. Absent: facial droop , speech deficit - Skin Skin exam: Present: dry, intact Internal Med - H&P Results - Labs CBC & Chem 7: 10/29/17 16:45 10/29/17 16:45 - Assessment and plan (1) Leukocytosis Current Visit: Yes Status: Acute Assessment and plan: Source of infection may be the patient's dental caries. Cellulitis was seen on the ct in the chin. Clindamycin 600 mg q8h CBC and BMP daily Qualifiers: Leukocytosis type: unspecified Qualified Code(s): D72.829 - Elevated white blood cell count, unspecified (2) Seizure-like activity Current Visit: Yes Status: Acute Assessment and plan: The patient having jerking movements which could be serotonin syndrome. Ativan 1 mg ivp q8h prn Neuro checks q shift - Time Spent With Patient Total time spent is greater than 50% in coordination of care (as documented) at patient's floor/unit and/or counseling patient:
[2017-10-29 19:57] LABS: Bilirubin,Urine Negative (Negative); Blood,Urine Trace (Negative); Clarity,Urine Clear (Clear); Color,Urine Yellow (Yellow); Glucose,Urine (UA) Normal (Normal); Ketones,Urine Negative (Negative); Leukocyte Esterase,Urine Negative (Negative); Nitrite,Urine Negative (Negative); Protein,Urine Negative (Neg-Trace); Specific Gravity,Urine > 1.030 (1.010-1.025); Urobilinogen,Urine Normal (Normal)
[2017-10-29 19:58] LABS: Bacteria,Urine None Seen per hpf (None-Few); Hyaline Casts,Urine None Seen per lpf (None-Few); Squamous Epithelial Cell,Urine Few per lpf (None-Few); WBC,Urine 0-3 per hpf (0-3)
[2017-10-29 20:20] LABS: Amphetamine Screen,Urine Positive ng/mL (Cutoff=1000); Barbiturate Screen,Urine Negative ng/mL (Cutoff=200); Benzodiazepines Screen,Urine Positive ng/mL (Cutoff=200); Cannabinoid Screen,Urine Negative ng/mL (Cutoff = 50); Cocaine Screen,Urine Negative ng/mL (Cutoff= 300); Opiate Screen,Urine Positive ng/mL (Cutoff=300); Phencyclidine Screen,Urine Negative ng/mL (Cutoff=25)
[2017-10-29] MEDS ORDERED: *HR* LORazepam 2 MG/ML VIAL IVP PRN (20:36)
[2017-10-30 01:57] LABS: Basophils % 0.4 %; Eosinophils # 0.2 K/mcL (0.0-0.6); Hematocrit 42.8 % (37.5-50.1); Immature Granulocytes % 0.1 % (0-4); Lymphocytes # 2.8 K/mcL (0.6-4.6); Lymphocytes % 36.2 %; Mean Corpuscular Hemoglobin 31.3 pg (28.0-33.3); Mean Corpuscular Volume 89.4 fL (83.0-100.0); Mean Platelet Volume 9.3 fL (9.4-12.4); Monocytes # 0.8 K/mcL (0.0-1.3); Nucleated Red Blood Cells 0.3 /100 WBC (0); Platelet Count 259 K/mcL (140-400); Red Blood Count 4.79 M/mcL (4.19-5.50); Red Cell Distribution Width 12.5 % (11.5-14.5); Segmented Neutrophils % 51.3 %
[2017-10-30 02:17] LABS: Alanine Aminotransferase 13 Units/L (7-52); Albumin 4.1 g/dL (3.5-5.7); Albumin/Globulin Ratio 1.3 (1.1-2.2); Alkaline Phosphatase 56 Units/L (34-104); Aspartate Amino Transferase 12 Units/L (13-39); BUN/Creatinine Ratio 12 (6-26); Bilirubin,Total 0.7 mg/dL (0.3-1.0); Blood Urea Nitrogen 11 mg/dL (6-20); Calcium 9.6 mg/dL (8.6-10.3); Carbon Dioxide 28 mEq/L (23-29); Chloride 107 mEq/L (98-107); Cholesterol 106 mg/dL (< 200); Globulin 3.1 g/dL (2.4-3.5); Glucose 83 mg/dL (70-105); HDL Cholesterol 35 mg/dL (40-59); LDL Cholesterol,Calculated 59 mg/dL (0-99); Magnesium 2.1 mg/dL (1.6-2.6); Osmolality,Calculated 287 (280-300); Potassium 4.1 mEq/L (3.5-5.1); Sodium 139 mEq/L (136-145); Total Protein 7.2 g/dL (6.4-8.9); Triglycerides 59 mg/dL (< 150); eGFR For African Americans > 60 (> 60); eGFR For Non-African Americans > 60 (> 60)
[2017-10-30] MEDS: Clindamycin 600 MG/50 ML 600 MG/50 ML IV.SOLN IVPB SCH ×3 (04:51→19:55)
[2017-10-30] MEDS: *HR* Heparin 5,000 UNIT/ML VIAL SQ SCH ×2 (04:51→17:44)
[2017-10-30] MEDS ORDERED: hydrOXYzine pamoate 25 MG CAPSULE PO PRN (09:09)
[2017-10-30] MEDS: clonazePAM 1 MG TABLET PO SCH ×2 (09:45→19:55)
[2017-10-30] MEDS: NALOXONE HCL PO SCH (12:05)
[2017-10-30] MEDS: BUPRENORPHINE HCL PO SCH (12:05)
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
--- NOTE | 2017-10-30 19:31 | Electrocardiograph Report ---
[place] [id number] Test Date: 2017-10-29 Pat Name: Jordi Roy Department: 104 Room: 3B Gender: M Baker Helper: TIFFANI : 1980 Requested By: [id number] Order Number: [id number] Reading MD: Aiden Ruby Measurements Intervals [place] Rate: 103 P: 23 NE: 136 QRS: 34 QRSD: 84 T: 52 QT: 336 QTc: 395 Interpretive Statements SINUS TACHYCARDIA Electronically Signed On 10-30-2017 19:30:00 EDT by Aiden Ruby
[2017-10-31] MEDS: Clindamycin 600 MG/50 ML 600 MG/50 ML IV.SOLN IVPB SCH (04:15)
[2017-10-31] MEDS: *HR* Heparin 5,000 UNIT/ML VIAL SQ SCH (04:18)
[2017-10-31 05:04] LABS: Basophils % 0.3 %; Eosinophils # 0.1 K/mcL (0.0-0.6); Eosinophils % 1.8 %; Hematocrit 45.5 % (37.5-50.1); Immature Granulocytes % 0.3 % (0-4); Lymphocytes # 2.4 K/mcL (0.6-4.6); Mean Corpuscular HGB Conc 35.2 g/dL (31.6-35.5); Mean Corpuscular Hemoglobin 30.4 pg (28.0-33.3); Mean Corpuscular Volume 86.3 fL (83.0-100.0); Mean Platelet Volume 9.6 fL (9.4-12.4); Monocytes # 0.6 K/mcL (0.0-1.3); Monocytes % 7.5 %; Neutrophils # 4.2 K/mcL (1.6-8.9); Platelet Count 281 K/mcL (140-400); Red Blood Count 5.27 M/mcL (4.19-5.50); Segmented Neutrophils % 57.1 %
[2017-10-31 05:26] LABS: Alanine Aminotransferase 13 Units/L (7-52); Albumin 4.3 g/dL (3.5-5.7); Albumin/Globulin Ratio 1.4 (1.1-2.2); Alkaline Phosphatase 53 Units/L (34-104); Aspartate Amino Transferase 13 Units/L (13-39); BUN/Creatinine Ratio 11 (6-26); Bilirubin,Total 0.5 mg/dL (0.3-1.0); Blood Urea Nitrogen 9 mg/dL (6-20); Calcium 9.8 mg/dL (8.6-10.3); Carbon Dioxide 29 mEq/L (23-29); Chloride 103 mEq/L (98-107); Glucose 98 mg/dL (70-105); Osmolality,Calculated 283 (280-300); Potassium 3.7 mEq/L (3.5-5.1); Sodium 137 mEq/L (136-145); Total Protein 7.3 g/dL (6.4-8.9); eGFR For African Americans > 60 (> 60); eGFR For Non-African Americans > 60 (> 60)
[2017-10-31 07:10] VITALS: BP 134/94
[2017-10-31] MEDS: NALOXONE HCL PO SCH (09:27)
[2017-10-31] MEDS: BUPRENORPHINE HCL PO SCH (09:27)
[2017-10-31] MEDS: clonazePAM 1 MG TABLET PO SCH (09:29)
--- NOTE | 2017-10-31 09:48 | Discharge Summary ---
- NOTES TO OUTPATIENT PROVIDER Notes to Outpatient Provider: Pt was seen for what was most likely serotonin syndrome based on pts report of seizure like activity. His dose of SSRI had been increased recently, dose has been returned to original. Pt was also treated for chin cellulitis and dental caries, he is leaving here to go to the dentist. Date of Encounter: 10/31/17 Time of Encounter: 09:40 - Discharge Diagnosis (1) Leukocytosis Priority: Primary Status: Resolved Assessment and Plan: REsolved. Pt is afebrile. Continue antibiotics. Likely secondary to mild chin cellulitis and dental caries. Qualifiers: Leukocytosis type: unspecified Qualified Code(s): D72.829 - Elevated white blood cell count, unspecified (2) Seizure-like activity Priority: Secondary Status: Acute Assessment and Plan: Resolved. Pt has had no other episodes since. Unclear etiology, differentials include polypharmacy and serotonin syndrome. Pt has returned to baseline and is afebrile, no leukocytosis, pt is mildly tachycardic with rate in the 80s and 90s, which he states is normal for him. Pt has no clonus and neuro exam is unremarkable. There is no diaphoresis, nausea, or vomiting. Pt and I discussed polypharmacy and side effects of taking medications that are not prescribed to him, he verbalized understanding. (3) Substance abuse Priority: Secondary Status: Chronic Assessment and Plan: Drug screen positive for opiates, amphetamines, and benzodiazepines. Pt is only prescribed Clonazepam 1mg po BID. OARRS report investigated, Suboxone and Clonazepam are prescribed. (4) DVT prophylaxis Priority: Secondary Status: Acute Assessment and Plan: Heparin. Pt is ambulatory. Hospital course: Mr. Roy is a 37 year old male Discharge discussed with: patient, nurse - Time Spent with Patient Total time spent providing and/or coordinating discharge services: Less than 30 minutes - Discharge Medications Prescriptions: Clindamycin [Cleocin] 150 mg PO Q6HR #20 capsule Sertraline [Zoloft] 50 mg PO DAILY #30 tablet Home Medications: Buprenorphine HCl/Naloxone HCl [Buprenorphin-Naloxon 8-2 mg Sl] 1.5 tab PO DAILY 10/29/17 [History] HydrOXYzine Pamoate [Vistaril] 100 mg PO BID 10/29/17 [History] clonazePAM [Klonopin] 1 mg PO BID 10/29/17 [History] Clindamycin [Cleocin] 150 mg PO Q6HR #20 capsule 10/31/17 [Rx] Sertraline [Zoloft] 50 mg PO DAILY #30 tablet 10/31/17 [Rx] Allergies/Adverse Reactions: 3 Allergy/AdvReac Type Severity Reaction Status Date / Time ketorolac [From Toradol] Allergy Hives Verified 10/29/17 18:13 Naloxone [From Narcan] AdvReac Palpitation Verified 10/29/17 18:13 s Date of admission: 10/29/17 18:12 Primary care physician: PCP NONE Discharging clinician: Jasmyn Agee Anticipated date of discharge: 10/31/17 - Constitutional Vitals: Temp Pulse Resp BP Pulse Ox 98.3 F 97 17 134/94 92 10/31/17 07:08 10/31/17 07:08 10/31/17 07:08 10/31/17 07:08 10/31/17 07:08 General appearance: Present: cooperative, A&O X 3, pleasant, no acute distress, answers questions appropriately - Head Head exam: Present: atraumatic, normal inspection, normocephalic - Eye Eye exam: Present: normal appearance, conjuntiva pink, sclera anicteric - Neck Neck exam general surgery: Present: supple, trachea midline. Absent: lymphadenopathy, tenderness - Respiratory Respiratory exam: Present: CTAB. Absent: accessory muscle use, rales, respiratory distress, rhonchi, wheezes - Cardiovascular Cardiovascular exam: Present: RRR, +S1, +S2. Absent: diastolic murmur, gallop, rubs, systolic murmur - GI/Abdominal GI/Abdominal exam: Present: normal bowel sounds, soft. Absent: distended, hepatomegaly, tenderness - Extremities Exam Extremities exam: Present: normal capillary refill, normal inspection, warm, radial pulses palpable and symmetrical. Absent: calf tenderness, cyanotic, pedal edema, tenderness - Neurological Exam Neurological exam: Present: alert, oriented X3, no focal deficits. Absent: facial droop, speech deficit - Skin Skin exam: Present: dry, intact, normal color, warm. Absent: rash - Patient Status Disposition: Home, Self-Care Condition: Good Functional capacity at discharge: independent ambulation Overall status at discharge: patient is back to baseline - Discharge Instructions Follow Up With: Maya Morillo DO [Partnered Physician] - Additional Instructions: Please follow up with Dr. Morillo in the next 7 days for a recheck. Return to the ER if your symptoms return or worsen. Take your medications as directed. Return to your normal diet and activities as tolerated. - Diet and Activity Activity: increase activity as tolerated Diet: advance to your usual diet
== END 2017-10-31 10:26 | disposition home or self-care (01) ==
LOC: 3BNU 16:33 → EMEROO 16:33 → 3BNU 18:54
PROVIDERS: ADMIT Internal Medicine Nephrology; ATTEND Internal Medicine Nephrology

== ENCOUNTER 2020-12-05 00:49 | Inpatient (IN) ==
[2020-12-05] MEDS ORDERED: 0.9 % Sodium Chloride 1,000 ML IVC ONE (01:35)
[2020-12-05] MEDS ORDERED: Isovue-370 500 ML BOTTLE IVP ONE (01:36)
[2020-12-05] MEDS ORDERED: Piperacillin/Tazobactam 3.375 GM in 0.9 % Sodium Chloride Mini Bag 100 ML IVPB ONE (02:36)
[2020-12-05] MEDS ORDERED: Vancomycin 1,500 MG/265 ML IV.SOLN IVPB STA (02:36)
[2020-12-05 03:24] LABS: Basophils % 0.2 %; Eosinophils % 0.4 %; Hematocrit 40.4 % (37.5-50.1); Hemoglobin 13.3 g/dL (12.9-16.9); Immature Granulocytes % 0.4 % (0-4); Lymphocytes # 0.2 K/mcL (0.6-4.6); Lymphocytes % 4.4 %; Mean Corpuscular HGB Conc 32.9 g/dL (31.6-35.5); Mean Corpuscular Volume 88.2 fL (83.0-100.0); Mean Platelet Volume 9.9 fL (9.4-12.4); Monocytes % 0.2 %; Neutrophils # 4.5 K/mcL (1.6-8.9); Platelet Count 147 K/mcL (140-400); Red Blood Count 4.58 M/mcL (4.19-5.50); Red Cell Distribution Width 13.2 % (11.5-14.5); Segmented Neutrophils % 94.4 %; White Blood Count 4.8 K/mcL (4.3-11.1)
[2020-12-05] MEDS ORDERED: Piperacillin/Tazobactam 3.375 GM in Water for inj. (sterile) 10 ML IVPB ONE (03:30)
[2020-12-05 03:39] LABS: INR 1.3; Prothrombin Time 15.2 Seconds (9.4-12.1)
[2020-12-05 03:59] LABS: Alanine Aminotransferase 157 Units/L (7-52); Albumin 3.8 g/dL (3.5-5.7); Albumin/Globulin Ratio 1.2 (1.1-2.2); Alkaline Phosphatase 106 Units/L (34-104); Aspartate Amino Transferase 249 Units/L (13-39); BUN/Creatinine Ratio 27 (6-26); Bilirubin,Indirect 0.6 mg/dL (0.0-1.0); Bilirubin,Total 1.6 mg/dL (0.3-1.0); Blood Urea Nitrogen 22 mg/dL (6-20); Calcium 9.2 mg/dL (8.6-10.3); Carbon Dioxide 21 mEq/L (23-29); Chloride 109 mEq/L (98-107); Globulin 3.2 g/dL (2.4-3.5); Glucose 109 mg/dL (70-105); Magnesium 1.6 mg/dL (1.6-2.6); Osmolality,Calculated 292 (280-300); Phosphorous 1.1 mg/dL (2.7-4.5); Potassium 3.1 mEq/L (3.5-5.1); Sodium 139 mEq/L (136-145); Troponin I < 0.03 ng/mL (< 0.04); eGFR For African Americans > 60 (> 60); eGFR For Non-African Americans > 60 (> 60)
[2020-12-05 04:10] LABS: Platelet Estimate Normal (Normal)
[2020-12-05] MEDS ORDERED: Potassium Chloride 40 MEQ, Lidocaine 1% 2 ML in 0.9 % Sodium Chloride 500 ML IVPB ONE (05:03)
[2020-12-05] MEDS ORDERED: Potassium Phosphate 44 MEQ in 0.9 % Sodium Chloride 250 ML IVPB ONE (05:04)
[2020-12-05] MEDS ORDERED: Furosemide 40 MG/4 ML VIAL IVP ONE (05:37)
[2020-12-05] MEDS ORDERED: Ondansetron 4 MG/2 ML VIAL IVP PRN (06:39)
[2020-12-05] MEDS ORDERED: Naloxone 0.4 MG/ML INJ IVP PRN (06:39)
[2020-12-05] MEDS ORDERED: Melatonin 3 MG TABLET PO PRN (06:39)
[2020-12-05] MEDS ORDERED: Perflutren Lipid Microsphere 1.3 ML in 0.9 % Sodium Chloride 8.7 ML IVP PRN (06:44)
[2020-12-05] MEDS ORDERED: *HR* LORazepam 2 MG/ML VIAL IVP PRN ×2 (07:07)
[2020-12-05 07:28] LABS: Bilirubin,Urine Negative (Negative); Blood,Urine Negative (Negative); Clarity,Urine Clear (Clear); Color,Urine Light-Yellow (Yellow); Glucose,Urine (UA) Normal (Normal); Ketones,Urine Negative (Negative); Leukocyte Esterase,Urine Negative (Negative); Nitrite,Urine Negative (Negative); PH,Urine 6.5 pH Units (5.0-8.0); Protein,Urine Negative (Neg-Trace); Specific Gravity,Urine 1.026 (1.010-1.025); Urobilinogen,Urine Normal (Normal)
[2020-12-05 09:12] LABS: BUN/Creatinine Ratio 25 (6-26); Blood Urea Nitrogen 23 mg/dL (6-20); Calcium 8.9 mg/dL (8.6-10.3); Carbon Dioxide 23 mEq/L (23-29); Chloride 105 mEq/L (98-107); Glucose 108 mg/dL (70-105); Osmolality,Calculated 286 (280-300); Phosphorous 3.2 mg/dL (2.7-4.5); Potassium 3.6 mEq/L (3.5-5.1); Sodium 136 mEq/L (136-145); eGFR For African Americans > 60 (> 60); eGFR For Non-African Americans > 60 (> 60)
[2020-12-05 10:28] LABS: Amphetamine Screen,Urine Positive ng/mL (Cutoff=1000); Barbiturate Screen,Urine Negative ng/mL (Cutoff=200); Benzodiazepines Screen,Urine Negative ng/mL (Cutoff=200); Cannabinoid Screen,Urine Negative ng/mL (Cutoff = 50); Cocaine Screen,Urine Negative ng/mL (Cutoff= 300); Opiate Screen,Urine Negative ng/mL (Cutoff=300); Phencyclidine Screen,Urine Negative ng/mL (Cutoff=25)
[2020-12-05] MEDS: Piperacillin/Tazobactam 3.375 GM in 0.9 % Sodium Chloride Mini Bag 100 ML IVPB SCH ×3 (10:36→23:57)
[2020-12-05] MEDS: Thiamine (B-1) 100 MG, Folic Acid 1 MG, MVI, adult with vitamin K 10 ML in 0.9 % Sodi... IVPB SCH (10:41)
[2020-12-05 12:07] LABS: Hepatitis B Surface Antigen Nonreactive (Nonreactive)
[2020-12-05 12:36] LABS: Hepatitis B Core IgM Nonreactive (Nonreactive)
[2020-12-05 13:53] LABS: Hepatitis A Antibody IgM Nonreactive (Nonreactive)
[2020-12-05 14:11] LABS: Hepatitis C Virus Antibody Reactive (Nonreactive)
[2020-12-05] MEDS: Vancomycin 1,500 MG/265 ML IV.SOLN IVPB SCH (15:18)
[2020-12-05] MEDS: Acetaminophen 325 MG TABLET PO PRN (22:38)
[2020-12-06] MEDS: Vancomycin 1,500 MG/265 ML IV.SOLN IVPB SCH (03:19)
[2020-12-06 04:42] LABS: Hematocrit 32.9 % (37.5-50.1); Mean Corpuscular HGB Conc 34.3 g/dL (31.6-35.5); Mean Corpuscular Volume 84.4 fL (83.0-100.0); Mean Platelet Volume 10.2 fL (9.4-12.4); Platelet Count 147 K/mcL (140-400); Red Cell Distribution Width 13.4 % (11.5-14.5)
[2020-12-06 04:44] LABS: Hemoglobin 11.3 g/dL (12.9-16.9)
[2020-12-06 05:03] LABS: BUN/Creatinine Ratio 23 (6-26); Blood Urea Nitrogen 22 mg/dL (6-20); Calcium 8.1 mg/dL (8.6-10.3); Carbon Dioxide 26 mEq/L (23-29); Chloride 106 mEq/L (98-107); Glucose 138 mg/dL (70-105); Osmolality,Calculated 292 (280-300); Potassium 2.9 mEq/L (3.5-5.1); Sodium 138 mEq/L (136-145); eGFR For African Americans > 60 (> 60); eGFR For Non-African Americans > 60 (> 60)
[2020-12-06 05:05] LABS: Eosinophils # 0.4 K/mcL (0.0-0.6); Lymphocytes # 2.7 K/mcL (0.6-4.6); Monocytes # 0.8 K/mcL (0.0-1.3); Neutrophils # 15.2 K/mcL (1.6-8.9); Platelet Estimate Normal (Normal); Toxic Granulation Present (Not Present)
[2020-12-06] MEDS: Furosemide 40 MG/4 ML VIAL IVP SCH (07:57)
[2020-12-06] MEDS: Piperacillin/Tazobactam 3.375 GM in 0.9 % Sodium Chloride Mini Bag 100 ML IVPB SCH ×2 (07:58→16:42)
[2020-12-06] MEDS: Acetaminophen 325 MG TABLET PO PRN (08:12)
[2020-12-06] MEDS ORDERED: *HR* Heparin 5,000 UNIT/ML VIAL IVP PRN (11:39)
[2020-12-06] MEDS ORDERED: *HR* Heparin 5,000 UNIT/ML VIAL IVP ONE (11:39)
[2020-12-06 12:57] LABS: Hematocrit 41.7 % (37.5-50.1); Hemoglobin 13.9 g/dL (12.9-16.9); Mean Corpuscular HGB Conc 33.3 g/dL (31.6-35.5); Mean Corpuscular Hemoglobin 28.7 pg (28.0-33.3); Mean Corpuscular Volume 86.2 fL (83.0-100.0); Mean Platelet Volume 10.3 fL (9.4-12.4); Platelet Count 195 K/mcL (140-400); Red Blood Count 4.84 M/mcL (4.19-5.50); Red Cell Distribution Width 13.4 % (11.5-14.5); White Blood Count 23.5 K/mcL (4.3-11.1)
[2020-12-06 13:06] LABS: Heparin anti-factor XA UFH < 0.04 IU/mL (0.30-0.70)
[2020-12-06 13:07] LABS: INR 1.3; Prothrombin Time 15.3 Seconds (9.4-12.1)
[2020-12-06] MEDS: Heparin 25,000UNIT/250ML 1/2NS 25,000 UNIT/250 ML IV.SOLN IVC SCH (13:58)
[2020-12-06] MEDS: Vancomycin 1,250 MG/262.5 ML IV.SOLN IVPB SCH ×2 (15:37→23:15)
[2020-12-06] MEDS: Thiamine (B-1) 100 MG, Folic Acid 1 MG, MVI, adult with vitamin K 10 ML in 0.9 % Sodi... IVPB SCH (16:43)
[2020-12-07] MEDS: Piperacillin/Tazobactam 3.375 GM in 0.9 % Sodium Chloride Mini Bag 100 ML IVPB SCH ×3 (01:07→16:50)
[2020-12-07 02:28] LABS: Hematocrit 35.2 % (37.5-50.1); Mean Corpuscular HGB Conc 34.1 g/dL (31.6-35.5); Mean Platelet Volume 10.3 fL (9.4-12.4); Platelet Count 180 K/mcL (140-400); Red Blood Count 4.14 M/mcL (4.19-5.50); Red Cell Distribution Width 13.2 % (11.5-14.5); White Blood Count 19.7 K/mcL (4.3-11.1)
[2020-12-07 02:49] LABS: Alanine Aminotransferase 63 Units/L (7-52); Albumin 3.4 g/dL (3.5-5.7); Albumin/Globulin Ratio 1.2 (1.1-2.2); Alkaline Phosphatase 67 Units/L (34-104); Aspartate Amino Transferase 31 Units/L (13-39); BUN/Creatinine Ratio 18 (6-26); Bilirubin,Total 0.4 mg/dL (0.3-1.0); Blood Urea Nitrogen 15 mg/dL (6-20); Calcium 8.6 mg/dL (8.6-10.3); Carbon Dioxide 27 mEq/L (23-29); Chloride 109 mEq/L (98-107); Globulin 2.9 g/dL (2.4-3.5); Glucose 95 mg/dL (70-105); Magnesium 1.9 mg/dL (1.6-2.6); Osmolality,Calculated 289 (280-300); Potassium 3.8 mEq/L (3.5-5.1); Sodium 139 mEq/L (136-145); Total Protein 6.3 g/dL (6.4-8.9); eGFR For African Americans > 60 (> 60); eGFR For Non-African Americans > 60 (> 60)
[2020-12-07] MEDS: *HR* Heparin 5,000 UNIT/ML VIAL IVP PRN ×2 (03:31→12:35)
[2020-12-07] MEDS: Vancomycin 1,250 MG/262.5 ML IV.SOLN IVPB SCH ×2 (07:10→16:44)
[2020-12-07] MEDS ORDERED: Isovue-370 500 ML BOTTLE IVP ONE (07:42)
[2020-12-07] MEDS: Heparin 25,000UNIT/250ML 1/2NS 25,000 UNIT/250 ML IV.SOLN IVC SCH ×2 (09:57→23:19)
[2020-12-07] MEDS: Furosemide 40 MG/4 ML VIAL IVP SCH (10:17)
[2020-12-07] MEDS: *HR* LORazepam 2 MG/ML VIAL IVP PRN ×2 (13:14→18:03)
[2020-12-07 14:15] LABS: Acinetobacter baumannii by PCR Not Detected (Not Detect); Candida albicans by PCR Not Detected (Not Detect); Candida glabrata by PCR Not Detected (Not Detect); Candida krusei by PCR Not Detected (Not Detect); Enterobacter cloacae Cmplx PCR Not Detected (Not Detect); Enterobacteriaceae by PCR Not Detected (Not Detect); Enterococcus by PCR Not Detected (Not Detect); Escherichia coli by PCR Not Detected (Not Detect); Klebsiella oxytoca by PCR Not Detected (Not Detect); Klebsiella pneumoniae by PCR Not Detected (Not Detect); Proteus by PCR Not Detected (Not Detect); Pseudomonas aeruginosa by PCR Not Detected (Not Detect); Serratia marcescens by PCR Not Detected (Not Detect); Staphylococcus aureus by PCR Not Detected (Not Detect); Staphylococcus by PCR Not Detected (Not Detect); Streptococcus agalactiae(B)PCR Not Detected (Not Detect); Streptococcus by PCR Not Detected (Not Detect); Streptococcus pneumoniae PCR Not Detected (Not Detect); Streptococcus pyogenes (A) PCR Not Detected (Not Detect)
[2020-12-07 14:16] LABS: Candida parapsilosis by PCR DETECTED (Not Detect); Candida tropicalis by PCR Not Detected (Not Detect)
[2020-12-07] MEDS: Micafungin 100 MG in 0.9 % Sodium Chloride Mini Bag 100 ML IVPB SCH (17:18)
[2020-12-07] MEDS: Vancomycin 1,500 MG/265 ML IV.SOLN IVPB SCH (19:14)
[2020-12-08] MEDS: Vancomycin 1,500 MG/265 ML IV.SOLN IVPB SCH ×2 (00:39→10:21)
[2020-12-08] MEDS: Piperacillin/Tazobactam 3.375 GM in 0.9 % Sodium Chloride Mini Bag 100 ML IVPB SCH ×2 (00:39→10:41)
[2020-12-08 01:24] LABS: Hematocrit 38.5 % (37.5-50.1); Hemoglobin 13.1 g/dL (12.9-16.9); Mean Corpuscular Hemoglobin 28.7 pg (28.0-33.3); Mean Corpuscular Volume 84.2 fL (83.0-100.0); Platelet Count 212 K/mcL (140-400); Red Blood Count 4.57 M/mcL (4.19-5.50); Red Cell Distribution Width 13.2 % (11.5-14.5); White Blood Count 13.7 K/mcL (4.3-11.1)
[2020-12-08 01:44] LABS: Alanine Aminotransferase 49 Units/L (7-52); Albumin 3.6 g/dL (3.5-5.7); Albumin/Globulin Ratio 1.1 (1.1-2.2); Alkaline Phosphatase 72 Units/L (34-104); Aspartate Amino Transferase 19 Units/L (13-39); BUN/Creatinine Ratio 16 (6-26); Bilirubin,Total 0.4 mg/dL (0.3-1.0); Blood Urea Nitrogen 14 mg/dL (6-20); Calcium 9.2 mg/dL (8.6-10.3); Carbon Dioxide 27 mEq/L (23-29); Chloride 103 mEq/L (98-107); Globulin 3.2 g/dL (2.4-3.5); Glucose 95 mg/dL (70-105); Osmolality,Calculated 292 (280-300); Potassium 3.6 mEq/L (3.5-5.1); Sodium 141 mEq/L (136-145); Total Protein 6.8 g/dL (6.4-8.9); eGFR For African Americans > 60 (> 60); eGFR For Non-African Americans > 60 (> 60)
[2020-12-08] MEDS: Micafungin 100 MG in 0.9 % Sodium Chloride Mini Bag 100 ML IVPB SCH (08:28)
[2020-12-08] MEDS: *HR* LORazepam 2 MG/ML VIAL IVP PRN (08:37)
[2020-12-08] MEDS ORDERED: Folic Acid 1 MG TABLET PO SCH (09:00)
[2020-12-08] MEDS ORDERED: Thiamine (B-1) 100 MG TABLET PO SCH (09:00)
[2020-12-08 10:38] VITALS: BP 115/71
[2020-12-08] MEDS ORDERED: Vancomycin 1,500 MG/265 ML IV.SOLN IVPB SCH (11:00)
[2020-12-08] MEDS ORDERED: Nicotine 2 MG GUM BC PRN (12:09)
[2020-12-08] MEDS ORDERED: *HR* LORazepam 2 MG/ML VIAL IVP ONE (12:12)
== END 2020-12-08 13:21 | disposition home or self-care (01) | DRG 720 ==
LOC: 3BNU 00:49 → EMEROOARM 00:49 → SUATTDRO 05:53 → 3BNU 07:56 → SUATTDRO 12-07 14:28
PROVIDERS: ADMIT Family Medicine; ATTEND Student in an Organized Health Care Education/Training Program

== ENCOUNTER 2020-12-10 15:49 | Observation (INO) ==
[2020-12-10 17:24] LABS: Basophils # 0.1 K/mcL (0.0-0.2); Basophils % 0.7 %; Eosinophils # 0.4 K/mcL (0.0-0.6); Eosinophils % 2.7 %; Hematocrit 40.8 % (37.5-50.1); Hemoglobin 13.6 g/dL (12.9-16.9); Immature Granulocytes % 4.5 % (0-4); Lymphocytes % 13.3 %; Mean Corpuscular HGB Conc 33.3 g/dL (31.6-35.5); Mean Corpuscular Hemoglobin 28.5 pg (28.0-33.3); Mean Corpuscular Volume 85.5 fL (83.0-100.0); Mean Platelet Volume 9.6 fL (9.4-12.4); Monocytes # 1.1 K/mcL (0.0-1.3); Monocytes % 6.9 %; Platelet Count 222 K/mcL (140-400); Red Blood Count 4.77 M/mcL (4.19-5.50); Segmented Neutrophils % 71.9 %; White Blood Count 15.3 K/mcL (4.3-11.1)
[2020-12-10 17:45] LABS: BUN/Creatinine Ratio 13 (6-26); Blood Urea Nitrogen 10 mg/dL (6-20); Calcium 9.3 mg/dL (8.6-10.3); Carbon Dioxide 24 mEq/L (23-29); Chloride 104 mEq/L (98-107); Glucose 152 mg/dL (70-105); Osmolality,Calculated 284 (280-300); Potassium 3.5 mEq/L (3.5-5.1); Sodium 136 mEq/L (136-145); eGFR For African Americans > 60 (> 60); eGFR For Non-African Americans > 60 (> 60)
[2020-12-10 18:01] LABS: Prolactin 17.03 ng/mL (3.00-14.70)
[2020-12-10] MEDS ORDERED: Piperacillin/Tazobactam 3.375 GM in Water for inj. (sterile) 20 ML IVP ONE (18:04)
[2020-12-10] MEDS ORDERED: Ondansetron ODT 4 MG TAB.RAPDIS SL PRN (18:08)
[2020-12-10] MEDS ORDERED: Acetaminophen 325 MG TABLET PO PRN (18:08)
[2020-12-10] MEDS ORDERED: *HR* OxyCODONE Immed Rel 5 MG TABLET PO PRN ×2 (18:13)
[2020-12-10] MEDS ORDERED: Micafungin 100 MG in 0.9 % Sodium Chloride Mini Bag 100 ML IVPB SCH (18:15)
[2020-12-10 18:36] LABS: Alanine Aminotransferase 41 Units/L (7-52); Albumin 4.2 g/dL (3.5-5.7); Albumin/Globulin Ratio 1.3 (1.1-2.2); Alkaline Phosphatase 85 Units/L (34-104); Aspartate Amino Transferase 21 Units/L (13-39); Bilirubin,Direct 0.1 mg/dL (0.0-0.2); Bilirubin,Indirect 0.3 mg/dL (0.0-1.0); Bilirubin,Total 0.4 mg/dL (0.3-1.0); Globulin 3.3 g/dL (2.4-3.5); Total Protein 7.5 g/dL (6.4-8.9)
[2020-12-10 18:37] LABS: Bilirubin,Urine Negative (Negative); Blood,Urine Trace (Negative); Clarity,Urine Clear (Clear); Color,Urine Light-Yellow (Yellow); Glucose,Urine (UA) Normal (Normal); Ketones,Urine Negative (Negative); Leukocyte Esterase,Urine Negative (Negative); Mucus,Urine Few per lpf (None-Few); Nitrite,Urine Negative (Negative); PH,Urine 5.5 pH Units (5.0-8.0); Protein,Urine Negative (Neg-Trace); RBC,Urine 0-3 per hpf (0-3); Specific Gravity,Urine 1.018 (1.010-1.025); Squamous Epithelial Cell,Urine Few per hpf (None-Few); Urobilinogen,Urine Normal (Normal)
[2020-12-10 18:50] LABS: Amphetamine Screen,Urine Negative ng/mL (Cutoff=1000); Barbiturate Screen,Urine Negative ng/mL (Cutoff=200); Benzodiazepines Screen,Urine Negative ng/mL (Cutoff=200); Cannabinoid Screen,Urine Positive ng/mL (Cutoff = 50); Cocaine Screen,Urine Positive ng/mL (Cutoff= 300); Opiate Screen,Urine Negative ng/mL (Cutoff=300); Phencyclidine Screen,Urine Negative ng/mL (Cutoff=25)
[2020-12-10 21:52] LABS: Adenovirus Not Detected (Not Detect); Bordetella Pertussis Not Detected (Not Detect); Chlamydophila pneumoniae Not Detected (Not Detect); Coronavirus 229E Not Detected (Not Detect); Coronavirus HKU1 Not Detected (Not Detect); Coronavirus NL63 Not Detected (Not Detect); Coronavirus OC43 Not Detected (Not Detect); Human Metapneumovirus Not Detected (Not Detect); Human Rhinovirus/Enterovirus Not Detected (Not Detect); Influenza A Subtype 2009 H1 Not Detected (Not Detect); Influenza B Not Detected (Not Detect); Mycoplasma pneumoniae Not Detected (Not Detect); Parainfluenza Virus 1 Not Detected (Not Detect); Parainfluenza Virus 2 Not Detected (Not Detect); Parainfluenza Virus 3 Not Detected (Not Detect); Parainfluenza Virus 4 Not Detected (Not Detect); Respiratory Syncytial Virus Not Detected (Not Detect); SARS-CoV-2 Not Detected (Not Detect)
[2020-12-11] MEDS ORDERED: Piperacillin/Tazobactam 3.375 GM in 0.9 % Sodium Chloride Mini Bag 100 ML IVPB SCH
[2020-12-11] MEDS ORDERED: *HR* Enoxaparin 40 MG/0.4 ML SYRINGE SQ SCH (06:00)
[2020-12-11] MEDS ORDERED: Vancomycin 1,500 MG/265 ML IV.SOLN IVPB SCH (06:00)
[2020-12-11 07:01] VITALS: BP 110/72
[2020-12-11] MEDS ORDERED: Fluconazole 400 MG/200 ML 400 MG/200 ML BAG IVPB SCH (07:15)
[2020-12-11 08:44] LABS: Hemoglobin 13.2 g/dL (12.9-16.9); Mean Corpuscular HGB Conc 33.8 g/dL (31.6-35.5); Mean Corpuscular Hemoglobin 28.8 pg (28.0-33.3); Mean Platelet Volume 9.8 fL (9.4-12.4); Platelet Count 252 K/mcL (140-400); Red Blood Count 4.59 M/mcL (4.19-5.50); Red Cell Distribution Width 13.1 % (11.5-14.5); White Blood Count 10.6 K/mcL (4.3-11.1)
[2020-12-11 09:08] LABS: BUN/Creatinine Ratio 15 (6-26); Blood Urea Nitrogen 13 mg/dL (6-20); Calcium 9.4 mg/dL (8.6-10.3); Carbon Dioxide 25 mEq/L (23-29); Chloride 105 mEq/L (98-107); Glucose 131 mg/dL (70-105); Osmolality,Calculated 280 (280-300); Potassium 3.7 mEq/L (3.5-5.1); Sodium 134 mEq/L (136-145); eGFR For African Americans > 60 (> 60); eGFR For Non-African Americans > 60 (> 60)
== END 2020-12-11 08:08 | disposition short-term general hospital (02) ==
LOC: EMEROOARM 15:49 → 2ANU 15:49 → SUATTDRO 18:47 → 2ANU 19:53
PROVIDERS: ADMIT Internal Medicine; ATTEND Family Medicine